=== PATIENT | male | born 1955 | race Caucasian/White ===

== ENCOUNTER 2019-01-14 02:05 | Emergency (ER) | payer OTHER ==
[~2019-01-14] VITALS: Ht 182.9 cm; Wt 97.5 kg
[2019-01-14 02:40] LABS: ABSOLUTE EOSINOPHILS 0.1 thou/uL (0.0-0.7); ABSOLUTE LYMPHOCYTES 0.4 thou/uL (0.8-5.3); ABSOLUTE MONOCYTES 0.2 thou/uL (0.0-1.2); ABSOLUTE NEUTROPHILS 3.6 thou/uL (1.6-8.1); BASOPHILS 0.4 %; EOSINOPHILS 1.5 %; HEMATOCRIT 39.2 % (42.0-52.0); HEMOGLOBIN 13.5 gm/dL (14.0-18.0); MCH 32.5 pg (26.0-34.0); MCHC 34.6 g/dL (28.0-37.0); MCV 93.9 fL (80.0-100.0); MONOCYTES 5.7 %; MPV 7.1 fl. (7.2-11.1); NUCLEATED RBCS 0 /100WBC; PLATELET COUNT* 224 thou/uL (150-400); POLYS 83.4 %; RBC 4.18 mil/uL (4.50-6.00); RDW-CV 13.7 % (10.5-14.5); WBC 4.3 thou/uL (4.0-11.0)
[2019-01-14 02:55] LABS: ANION GAP 7 mmol/L (7-16); BUN 26 mg/dL (7-18); CALCIUM 8.7 mg/dL (8.5-10.1); CHLORIDE 107 mmol/L (98-107); CO2 29 mmol/L (21-32); CREATININE 1.4 mg/dL (0.6-1.3); GLUCOSE 144 mg/dL (70-99); POTASSIUM 3.8 mmol/L (3.5-5.1); SODIUM 143 mmol/L (136-145)
[2019-01-14 02:58] LABS: PROTIME 10.3 Seconds (9.20-11.50)
[2019-01-14 03:05] LABS: ALBUMIN 3.6 g/dL (3.4-5.0); ALKALINE PHOSPHATASE 103 U/L (46-116); NT-PRO BRAIN NAT PEPTIDE 407 pg/mL (<300); SGOT 18 U/L (15-37); SGPT 22 U/L (30-65); TOTAL BILIRUBIN 0.4 mg/dL (<0.1-1.0); TOTAL PROTEIN 7.2 g/dL (6.4-8.2); TROPONIN-I LEVEL <0.06 ng/mL (<0.06)
[2019-01-14 04:21] LABS: URINE BILIRUBIN NEGATIVE (Negative); URINE BLOOD NEGATIVE (Negative); URINE CLARITY CLEAR; URINE COLOR YELLOW; URINE GLUCOSE-RANDOM NEGATIVE (Negative); URINE KETONES NEGATIVE (Negative); URINE LEUKOCYTES-REFLEX NEGATIVE (Negative); URINE NITRITE-REFLEX NEGATIVE (Negative); URINE PROTEIN TRACE (Negative); URINE SPECIFIC GRAVITY >= 1.030 (1.005-1.030); URINE UROBILINOGEN 0.2 E.U./dl (0.2-1.0)
[2019-01-14 04:28] LABS: AMP/METHAMP POSITIVE (Negative); BARBITURATES Negative (Negative); BENZODIAZEPINES Negative (Negative); COCAINE Negative (Negative); METHADONE Negative (Negative); OPIATES Negative (Negative); PCP Negative (Negative); THC POSITIVE (Negative)
[2019-01-14 06:56] VITALS: BP 184/96
--- NOTE | 2019-01-14 12:44 | EKG ---
[place] [address] ELECTROCARDIOGRAM REPORT Name: DON[facility]E GAMEZ [id number]: 01/14/19 Attend Phys: Discharge: 01/14/19 Date of : 57 Report #: [id number] THIS REPORT FOR: //name// [facility] ED Test Date: 2019-01-14 Test Time: 02:07:03 Pat Name: DONTAE GAMEZ Department: Room: Gender: M [employer] Supervisor: [place] : 1955 Requested By: Cindy Brink Order Number: [id number] MD: Jason Gao Measurements Intervals [place] Rate: 66 P: 62 [place]: 184 QRS: -30 QRSD: 121 T: -11 QT: 459 QTc: 481 Interpretive Statements Sinus rhythm Borderline T abnormalities, inferior leads Borderline prolonged QT interval No previous ECG available for comparison Electronically Signed On 01-14-2019 12:44:18 CDT by Jason Gao [email or web address] <ELECTRONICALLY SIGNED> By: Jason Gao MD, [facility] 01/14/19 1244 [id number] [id number] Jason Gao MD, FACC /EPI
== END 2019-01-14 06:57 | disposition home or self-care (01) ==
LOC: M.ERS 02:05
PROVIDERS: Emergency Medicine
DX: R07.89 Other chest pain (principal); F15.10 Other stimulant abuse, uncomplicated; R42 Dizziness and giddiness

== ENCOUNTER 2019-12-07 15:48 | Emergency (ER) | payer OTHER ==
[~2019-12-07] VITALS: Ht 185.4 cm; Wt 90.7 kg
[2019-12-07 18:09] LABS: ABSOLUTE EOSINOPHILS 0.3 thou/uL (0.0-0.7); ABSOLUTE LYMPHOCYTES 0.8 thou/uL (0.8-5.3); ABSOLUTE MONOCYTES 0.6 thou/uL (0.0-1.2); ABSOLUTE NEUTROPHILS 3.6 thou/uL (1.6-8.1); BASOPHILS 0.7 %; EOSINOPHILS 6.1 %; HEMATOCRIT 39.7 % (42.0-52.0); HEMOGLOBIN 13.8 gm/dL (14.0-18.0); LYMPHOCYTES 15.5 %; MCH 32.1 pg (26.0-34.0); MCHC 34.7 g/dL (28.0-37.0); MCV 92.6 fL (80.0-100.0); MONOCYTES 10.6 %; MPV 7.1 fl. (7.2-11.1); NUCLEATED RBCS 0 /100WBC; PLATELET COUNT* 222 thou/uL (150-400); POLYS 67.1 %; RBC 4.28 mil/uL (4.50-6.00); RDW-CV 14.8 % (10.5-14.5); WBC 5.3 thou/uL (4.0-11.0)
[2019-12-07 18:17] LABS: CALCIUM 8.4 mg/dL (8.5-10.1); CREATININE 1.4 mg/dL (0.6-1.3); POTASSIUM 3.9 mmol/L (3.5-5.1)
[2019-12-07 18:22] LABS: ALBUMIN 3.6 g/dL (3.4-5.0); TOTAL BILIRUBIN 0.4 mg/dL (<0.1-1.0); TOTAL PROTEIN 7.3 g/dL (6.4-8.2)
[2019-12-07] MEDS ORDERED: DOXYCYCLINE 10100 MG PO (18:54)
[2019-12-07] MEDS ORDERED: APAP W/CODEINE1 TA2 PO (18:54)
[2019-12-07 19:05] VITALS: BP 148/106
== END 2019-12-07 19:29 | disposition home or self-care (01) ==
LOC: M.ERS 15:48
PROVIDERS: Physician Assistant
DX: L03.115 Cellulitis of right lower limb (principal)

== ENCOUNTER 2021-06-22 13:19 | Inpatient (IN) | payer OTHER ==
[~2021-06-22] VITALS: Ht 185.4 cm; Wt 108.4 kg
[~2021-06-22 13:19] MED LIST: APAP W/CODEINE1 TA2 PO; DOXYCYCLINE 10100 MG PO
[2021-06-22 13:28] VITALS: BP 175/110
[2021-06-22 13:52] LABS: ABSOLUTE BASOPHILS 0.1 thou/uL (0.0-0.2); ABSOLUTE EOSINOPHILS 0.2 thou/uL (0.0-0.7); ABSOLUTE LYMPHOCYTES 0.7 thou/uL (0.8-5.3); ABSOLUTE MONOCYTES 0.6 thou/uL (0.0-1.2); ABSOLUTE NEUTROPHILS 3.4 thou/uL (1.6-8.1); BASOPHILS 1.2 %; EOSINOPHILS 3.6 %; HEMATOCRIT 44.9 % (42.0-52.0); HEMOGLOBIN 14.8 gm/dL (14.0-18.0); LYMPHOCYTES 14.8 %; MCH 30.5 pg (26.0-34.0); MCHC 32.9 g/dL (28.0-37.0); MCV 92.8 fL (80.0-100.0); MONOCYTES 12.2 %; NUCLEATED RBCS 0 /100WBC; PLATELET COUNT* 183 thou/uL (150-400); POLYS 68.2 %; RBC 4.84 mil/uL (4.50-6.00); RDW-CV 16.2 % (10.5-14.5)
[2021-06-22 14:06] LABS: CALCIUM 8.4 mg/dL (8.5-10.1); CREATININE 1.7 mg/dL (0.6-1.3); POTASSIUM 3.7 mmol/L (3.5-5.1)
[2021-06-22 14:16] LABS: ALBUMIN 3.9 g/dL (3.4-5.0); MAGNESIUM 1.8 mg/dL (1.8-2.4); TOTAL BILIRUBIN 1.1 mg/dL (<0.1-1.0); TOTAL PROTEIN 7.1 g/dL (6.4-8.2)
[2021-06-22 16:00] VITALS: BP 149/100
[2021-06-22 20:00] VITALS: BP 153/94
[2021-06-22 20:01] VITALS: BP 153/94
[2021-06-22 20:09] VITALS: BP 139/89
[2021-06-23] VITALS: BP 156/98
[2021-06-23 04:00] VITALS: BP 153/102
[2021-06-23 05:22] LABS: ABSOLUTE EOSINOPHILS 0.4 thou/uL (0.0-0.7); ABSOLUTE LYMPHOCYTES 0.9 thou/uL (0.8-5.3); ABSOLUTE MONOCYTES 0.7 thou/uL (0.0-1.2); ABSOLUTE NEUTROPHILS 4.6 thou/uL (1.6-8.1); BASOPHILS 0.8 %; EOSINOPHILS 5.8 %; HEMOGLOBIN 14.3 gm/dL (14.0-18.0); LYMPHOCYTES 13.2 %; MCH 30.4 pg (26.0-34.0); MCHC 32.5 g/dL (28.0-37.0); MCV 93.6 fL (80.0-100.0); MPV 8.9 fl. (7.2-11.1); NUCLEATED RBCS 0 /100WBC; PLATELET COUNT* 188 thou/uL (150-400); POLYS 69.2 %; RDW-CV 16.2 % (10.5-14.5); WBC 6.6 thou/uL (4.0-11.0)
[2021-06-23 05:24] LABS: CALCIUM 8.6 mg/dL (8.5-10.1); CREATININE 1.6 mg/dL (0.6-1.3); POTASSIUM 3.5 mmol/L (3.5-5.1)
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
[2021-06-23 11:19] VITALS: BP 128/85
--- NOTE | 2021-06-23 11:22 | EKG ---
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[place] : 1955 Requested By: Harry Waggoner Order Number: [id number] MD: Jason Gao Measurements Intervals [place] Rate: 101 P: 69 [place]: 189 QRS: -52 QRSD: 130 T: 106 QT: 388 QTc: 503 Interpretive Statements Sinus tachycardia Ventricular premature complex Probable left atrial enlargement RBBB and LAFB Compared to ECG 01/14/2019 02:07:03 Ventricular premature complex(es) now present Right bundle-branch block now present Sinus rhythm no longer present Electronically Signed On 06-23-2021 11:22:38 EDUCATIONAL THERAPIST by Jason Gao [email or web address] <ELECTRONICALLY SIGNED> By: Jason Gao MD, [facility] 06/23/21 1122 1329 1329 Jason Gao MD, [facility] /EPI
[2021-06-23 16:06] VITALS: BP 119/80
[2021-06-23 20:59] VITALS: BP 128/84
[2021-06-24] VITALS (7 sets, daily range): BP systolic 108–153; BP diastolic 72–91
[2021-06-24 03:06] LABS: GLYCOHEMOGLOBIN (HGB A1C) 6.2 % (4.8-5.6)
[2021-06-24 04:21] LABS: ABSOLUTE EOSINOPHILS 0.3 thou/uL (0.0-0.7); ABSOLUTE LYMPHOCYTES 0.7 thou/uL (0.8-5.3); ABSOLUTE NEUTROPHILS 4.7 thou/uL (1.6-8.1); HEMOGLOBIN 14.6 gm/dL (14.0-18.0); NUCLEATED RBCS 0 /100WBC; RDW-CV 16.4 % (10.5-14.5); WBC 6.4 thou/uL (4.0-11.0)
[2021-06-24 04:29] LABS: ABSOLUTE MONOCYTES 0.7 thou/uL (0.0-1.2); ALBUMIN 3.7 g/dL (3.4-5.0); ALKALINE PHOSPHATASE 156 U/L (46-116); ANION GAP 10 mmol/L (7-16); BASOPHILS 0.5 %; BUN 33 mg/dL (7-18); CALCIUM 8.8 mg/dL (8.5-10.1); CHLORIDE 102 mmol/L (98-107); CHOLESTEROL 136 mg/dL (<200); CO2 28 mmol/L (21-32); CREATININE 1.9 mg/dL (0.6-1.3); EOSINOPHILS 5.1 %; GLUCOSE 111 mg/dL (70-99); HDL CHOLESTEROL 53 mg/dL (>40); LDL CHOLESTEROL 75 mg/dL (<100); LYMPHOCYTES 10.5 %; MCH 30.6 pg (26.0-34.0); MCHC 33.1 g/dL (28.0-37.0); MCV 92.4 fL (80.0-100.0); MONOCYTES 10.5 %; MPV 8.7 fl. (7.2-11.1); PLATELET COUNT* 168 thou/uL (150-400); POLYS 73.4 %; POTASSIUM 3.8 mmol/L (3.5-5.1); RBC 4.76 mil/uL (4.50-6.00); SGOT 17 U/L (15-37); SGPT 27 U/L (30-65); SODIUM 140 mmol/L (136-145); TC:HDL 2.6 Ratio (Not establshd); TOTAL BILIRUBIN 1.9 mg/dL (<0.1-1.0); TOTAL PROTEIN 6.9 g/dL (6.4-8.2); TRIGLYCERIDE 44 mg/dL (<150); VLDL 9 mg/dL (<40)
[2021-06-24 04:31] LABS: SERUM ASSESSMENT Clear
--- NOTE | 2021-06-24 11:59 | 2DMMODE ---
[place] [address] 2 D/M-MODE ECHOCARDIOGRAM Name: DONTAE GAMEZ Room: [address] IN [facility]#: [id number] Admission: 06/22/21 Attend Phys: Dhruv Florence, Discharge: Date of : 57 Date of Service: 06/24/21 1159 Report #: [id number] THIS REPORT FOR: cc: FAM - No family physician/PCP FAM - No family physician/PCP Jason Gao MD [facility] ~ APPROVED REPORT Study performed: 06/24/2021 09:57:08 EXAM: Comprehensive 2D, Doppler, and color-flow Echocardiogram Patient Location: In-Patient Room #: [facility] Status: routine BSA: 2.28 HR: 83 bpm BP: 130/91 mmHg Rhythm: NSR Other Information Study Quality: Good Indications Congestive Heart Failure 2D Dimensions IVSd: 12.41 (7-11mm) LVOT Diam: 21.37 (18-24mm) LVDd: 58.90 mm PWd: 12.26 (7-11mm) Ascending Ao: 36.69 (22-36mm) LVDs: 49.03 (25-40mm) Aortic Root: 33.13 mm Volumes Left Atrial Volume (Systole) LA ESV Index: 49.60 mL/m2 Aortic Valve AoV Peak Anand.: 2.04 m/s AO Peak Gr.: 16.66 mmHg LVOT Max P.65 mmHg AO Mean Gr.: 10.93 mmHg LVOT Mean P.87 mmHg LVOT Max V: 0.64 m/s AO V2 VTI: 35.64 cm LVOT Mean V: 0.44 m/s DASIA (VTI): 1.19 cm2 LVOT V1 VTI: 11.79 [place] [address] 2 D/M-MODE ECHOCARDIOGRAM Name: DONTAE GAMEZ Room: [address] IN [facility]#: [id number] Admission: 06/22/21 Attend Phys: Dhruv Florence, Discharge: Date of : 57 Date of Service: 06/24/21 1159 Report #: [id number] Mitral Valve E/A Ratio: 1.65 MV Decel. Time: 198.91 ms MV E Max Anand.: 1.01 m/s MV PHT: 57.68 ms MVA (PHT): 3.81 cm2 TDI E/Lateral E': 10.10 Lateral E' Anand.: 0.10 m/s Pulmonary Valve PV Peak Anand.: 0.76 m/s PV Peak Gr.: 2.32 mmHg Tricuspid Valve RAP Estimate: 5.00 mmHg TR Peak Gr.: 29.71 mmHg RVSP: 34.00 mmHg PA Pressure: 34.00 mmHg Left Ventricle Left ventricle is mildly dilated. There is global hypokinesis of the left ventricle. Mild concentric left ventricular hypertrophy. Left ventricular systolic function is severely decreased. LVEF is 20-25%. Grade IV - fixed restrictive diastolic dysfunction. Right Ventricle Right ventricle is dilated. The right ventricular systolic function is normal. Atria Left atrium is severely dilated. Right atrium is dilated. Aortic Valve Aortic valve is calcified. Mild aortic regurgitation. Mild aortic stenosis. Mitral Valve The mitral valve is normal in structure. Mild mitral regurgitation. No evidence of mitral valve stenosis. Tricuspid Valve The tricuspid valve is normal in structure. Moderate tricuspid regurgitation. estimated pa pressure 40 mm Hg Pulmonic Valve The pulmonary valve is normal in [place] [address] 2 D/M-MODE ECHOCARDIOGRAM Name: DONTAE GAMEZ Room: [address]#: [id number] Admission: 06/22/21 Attend Phys: Dhruv Florence, Discharge: Date of : 57 Date of Service: 06/24/21 1159 Report #: [id number] regurgitation. Great Vessels The aortic root is normal in size. IVC is normal in size and collapses >50% with inspiration. Pericardium There is no pericardial effusion. <Conclusion> Left ventricle is mildly dilated. Mild concentric left ventricular hypertrophy. LVEF is 20-25%. Right ventricle is dilated. Left atrium is severely dilated. Mild aortic stenosis. Mild aortic regurgitation. Mild mitral regurgitation. Moderate tricuspid regurgitation. estimated pa pressure 40 mm Hg <ELECTRONICALLY SIGNED> By: Jason Gao MD, FACC 06/24/21 1159 1159 1159 Jason Gao MD, FACC /INF
== END 2021-06-25 | disposition home or self-care (01) | DRG 291 ==
LOC: M.ERS 13:19 → M.TBA-ER 14:44 → M.2W 20:01
PROVIDERS: Emergency Medicine Emergency Medical Services; ADMIT Internal Medicine; ATTEND Internal Medicine
DX: I13.0 Hypertensive heart and chronic kidney disease with heart failure and stage 1 through stage 4 chronic kidney disease, or unspecified chronic kidney disease (principal); I50.21 Acute systolic (congestive) heart failure; N17.9 Acute kidney failure, unspecified; E11.22 Type 2 diabetes mellitus with diabetic chronic kidney disease; N18.9 Chronic kidney disease, unspecified; Z20.822 Contact with and (suspected) exposure to COVID-19